=== PATIENT | female | born 1955 | race African-American/Black ===

== ENCOUNTER 2018-05-03 23:46 | Emergency (ER) | payer BC ==
[2018-05-04] MEDS ORDERED: CLONIDINE HCL 0.1 MG TABLET PO ONE (01:30)
[2018-05-04 01:52] LABS: BASO % 0.2 % (0-6); EOS % 1.1 % (0-6); GRAN % 83.7 % (47-80); HEMATOCRIT 40.3 % (35.0-47.0); HEMOGLOBIN 12.5 gm/dl (11.6-16.0); LYMPH % 10.4 % (16-45); MEAN CELL VOLUME 86.3 fl (81-97); MEAN CORPUSCULAR HEMOGLOBIN 26.8 pg (27-33); MEAN PLATELET VOLUME 10.8 fl (7.4-10.4); MONO % 4.6 % (0-9); PLATELET COUNT 309 K/uL (130-400); RED BLOOD COUNT 4.67 M/uL (3.80-5.40); RED CELL DISTRIBUTION WIDTH 14.1 % (11.5-14.5); WHITE BLOOD COUNT W/O DIFF 11.9 K/uL (4.2-12.2)
[2018-05-04 02:03] LABS: BLOOD UREA NITROGEN 14 mg/dL (8-23); CREATININE 0.6 mg/dL (0.5-0.9); EST GLOMERULAR FILTRATION RATE > 60 mL/min
[2018-05-04 02:06] LABS: GLUCOSE,RANDOM 122 mg/dL (74-109)
--- NOTE | 2018-05-04 03:10 | Emergency Department Record ---
History of Present Illness - General Chief complaint: Allergic Reaction Stated complaint: RIGHT EYE AND HEAD HURTS Time Seen by Provider: 05/04/18 01:16 Source: Patient Mode of Arrival: Ambulatory Limitations: No limitations - History of Present Illness Initial Comments: pt is c/o pain in her eye w a headache and decreased vision for 2 days. she has recently started an antihistamine. her eye is red and tearing Onset/Timin -: Days(s) Exposure: Medication Symptoms: Other Severity: Mild Treatment Prior to Arrival: None Previous Allergy History: None - Related Data Home Medications Medication Instructions Recorded Confirmed Last Taken Azithromycin [Zithromax] 250 mg PO DAILY 05/04/18 05/04/18 05/03/18 Cholecalciferol (Vitamin D3) 5,000 unit PO DAILY 05/04/18 05/04/18 05/03/18 [Vitamin D3] Loratadine 10 mg PO DAILY 05/04/18 05/04/18 05/03/18 Lysite-3 Fatty Acids/Fish Oil 1 each PO DAILY 05/04/18 05/04/18 05/03/18 [Lysite-3 Fish Oil 1,000 mg Sfgl] Sertraline HCl [Zoloft] 50 mg PO DAILY 05/04/18 05/04/18 05/03/18 Allergies Allergy/AdvReac Type Severity Reaction Status Date / Time No Known Drug Allergies Allergy Verified 05/04/18 00:43 Travel Screening - Travel/Exposure Within Last 30 Days Have you traveled within the last 30 days?: No - Travel/Exposure Within Last Year Have you traveled outside the [place] in the last year?: No - Additonal Travel Details Have you been exposed to anyone with a communicable illness?: No - Travel Symptoms Symptom Screening: None Review of Systems Reviewed: No additional complaints except as noted below Constitutional: Reports: As per HPI. Denies: Chills, Fever, Malaise, Night sweats, Weakness, Weight change Eyes: Reports: As per HPI. Denies: Eye discharge, Eye pain, Photophobia, Vision change ENT: Reports: As per HPI. Denies: Congestion, Dental pain, Ear pain, Epistaxis , Hearing loss, Throat pain Respiratory: Reports: As per HPI. Denies: Cough, Dyspnea, Hemoptysis, Stridor, Wheezes Cardiovascular: Reports: As per HPI. Denies: Arrhythmia, Chest pain, Dyspnea on exertion, Edema, Murmurs, Orthopnea, Palpitations, Paroxysmal nocturnal dyspnea, Rheumatic Fever, Syncope Endocrine: Reports: As per HPI. Denies: Fatigue, Heat or cold intolerance, Polydipsia, Polyuria Gastrointestinal: Reports: As per HPI. Denies: Abdominal pain, Constipation, Diarrhea, Hematemesis, Hematochezia, Melena, Nausea, Vomiting Genitourinary: Reports: As per HPI. Denies: Abnormal menses, Discharge, Dyspareunia, Dysuria, Frequency, Hematuria, Incontinence, Retention, Urgency Musculoskeletal: Reports: As per HPI. Denies: Arthralgia, Back pain, Gout, Joint swelling, Myalgia, Neck pain Skin: Reports: As per HPI. Denies: Bruising, Change in color, Change in hair/ nails, Lesions, Pruritus, Rash Neurological: Reports: As per HPI. Denies: Abnormal gait, Confusion, Headache, Numbness, Paresthesias, Seizure, Tingling, Tremors, Vertigo, Weakness Psychiatric: Reports: As per HPI. Denies: Anxiety, Auditory hallucinations, Depression, Homicidal thoughts, Suicidal thoughts, Visual hallucinations Hematological/Lymphatic: Reports: As per HPI. Denies: Anemia, Blood Clots, Easy bleeding, Easy bruising, Swollen glands Past Medical History - SOCIAL HISTORY Smoking Status: Never smoker Alcohol Use: None Drug Use: None - RESPIRATORY Hx Respiratory Disorders: No - CARDIOVASCULAR Hx Cardio Disorders: No - NEURO Hx Neuro Disorders: No - GI Hx GI Disorders: No - Hx Genitourinary Disorders: No - ENDOCRINE Hx Endocrine Disorders: No - MUSCULOSKELETAL Hx Musculoskeletal Disorders: No - PSYCH Hx Psych Problems: No - HEMATOLOGY/ONCOLOGY Hx Hematology/Oncology Disorders: No Family Medical History Any Significant Family History?: No Physical Exam - General General Appearance: Alert, Oriented x3, Cooperative, Mild distress - Head Head exam: Normal inspection - Eye Eye exam: Conjunctival injection, EOMI, Periorbital swelling, Periorbital tenderness. negative: PERRL Pupils: Unequal Visual acuity (L) = 20/: 50 Visual acuity (R) = 20/: 100 With correction: Yes IOP measured with: other (firmness in r eye) - ENT ENT exam: Normal exam, Mucous membranes moist, Normal external ear exam, Normal orophraynx Ear exam: Normal external inspection. negative: External canal tenderness Nasal Exam: Normal inspection. negative: Discharge, Sinus tenderness Mouth exam: Normal external inspection, Tongue normal Teeth exam: Normal inspection. negative: Dental caries Throat exam: Normal inspection. negative: Tonsillar erythema, Tonsillar exudate - Neck Neck exam: Normal inspection, Full ROM. negative: Tenderness - Respiratory Respiratory exam: Normal lung sounds bilaterally. negative: Respiratory distress - Cardiovascular Cardiovascular Exam: Regular rate, Normal rhythm, Normal heart sounds - GI/Abdominal GI/Abdominal exam: Soft, Normal bowel sounds. negative: Tenderness - Rectal Rectal exam: Deferred - exam: Deferred - Extremities Extremities exam: Normal inspection, Full ROM, Normal capillary refill. negative: Tenderness - Back Back exam: Reports: Normal inspection, Full ROM. Denies: Muscle spasm, Rash noted, Tenderness - Neurological Neurological exam: Alert, CN II-XII intact, Normal gait, Oriented X3 - Psychiatric Psychiatric exam: Normal affect, Normal mood - Skin Skin exam: Dry, Intact, Normal color, Warm Course Vital Signs 05/04/18 05/04/18 00:31 01:30 Temperature 98.2 F Pulse Rate [ 86 86 Pulse Ox Probe] Respiratory 17 18 Rate Blood Pressure 186/117 184/104 [Left Arm] Pulse Ox 100 100 Medical Decision Making - Lab Data Result diagrams: 05/04/18 01:30 05/04/18 01:30 Lab Results 05/04/18 05/04/18 Range/Units 01:30 01:30 WBC 11.9 (4.2-12.2) K/uL RBC 4.67 (3.80-5.40) M/uL Hgb 12.5 (11.6-16.0) gm/dl Hct 40.3 (35.0-47.0) % MCV 86.3 (81-97) fl MCH 26.8 L (27-33) pg MCHC 31.0 L (32-36) g/dl RDW 14.1 (11.5-14.5) % Plt Count 309 (130-400) K/uL MPV 10.8 H (7.4-10.4) fl Gran % 83.7 H (47-80) % Lymphocytes % 10.4 L (16-45) % Monocytes % 4.6 (0-9) % Eosinophils % 1.1 (0-6) % Basophils % 0.2 (0-6) % Sodium 143 (136-145) mmol/L Potassium 4.1 (3.4-4.5) mmol/L Chloride 100 (98-107) mmol/L Carbon Dioxide 30.0 H (22-29) mmol/L Anion Gap 13.0 (7-16) BUN 14 (8-23) mg/dL Creatinine 0.6 (0.5-0.9) mg/dL Estimated GFR > 60 mL/min Random Glucose 122 H (74-109) mg/dL Calcium 9.8 (8.8-10.2) mg/dL Disposition Disposition: Transfer Clinical Impression: Glaucoma (increased eye pressure) Qualifiers: Glaucoma type: unspecified Laterality: right Qualified Code(s): H40.9 - Unspecified glaucoma Hypertension Qualifiers: Hypertension type: essential hypertension Qualified Code(s): I10 - Essential ( primary) hypertension Disposition: Home, Self-Care Transfer To: [facility] Reason For Transfer: needs ophthamology Accepting Physician: dr santa Time Discussed w/Accepting Physician: 03:14 Condition: (2) Stable Instructions: Glaucoma (ED), Hypertension (ED) Quality - Quality Measures Quality Measures: N/A - Blood Pressure Screening Does Patient Have Any of the Following: No Blood Pressure Classification: Hypertensive Reading Systolic Measurement: 184 Diastolic Measurement: 104 Screening for High Blood Pressure: < First Hypertensive BP, F/U Documented > [ [id number]] First Hypertensive Follow-up Interventions: Follow-up with rescreen GT 1 day and LT 4 weeks.
--- NOTE | 2018-05-06 14:34 | CT SCAN REPORT ---
EXAM: CT OF THE BRAIN WITHOUT CONTRAST HISTORY: MIGRAINE. TECHNIQUE: Sequential axial images were obtained from the foramen magnum to the vertex without contrast administration. FINDINGS: The brain volume is normal. No large territorial infarct, hemorrhage , mass effect, or midline shift. No extraaxial fluid collection. The orbits, paranasal sinuses, and mastoid air cells are normal. IMPRESSION: NO ACUTE INTRACRANIAL ABNORMALITY IS APPRECIATED. JOB NUMBER: [id number] MTDD
== END 2018-05-04 03:42 | disposition home or self-care (01) ==
LOC: ER 23:46
DX: H40.9 Unspecified glaucoma (principal); I10 Essential (primary) hypertension; R51 Headache
CPT/HCPCS: 70450; 80048; 85025; 99285